=== PATIENT | male | born 1970 | race Caucasian/White ===

== ENCOUNTER 2017-01-07 18:06 | Inpatient (IN) | payer MEDICAID ==
[~2017-01-07] VITALS: Ht 172.7 cm; Wt 83.1 kg
[~2017-01-07 18:06] MED LIST: PALI6 PO; QUET100T PO; QUET200T PO; QUET25TA PO
[2017-01-07 18:58] LABS: BASOPHILS % (AUTO) 0.5 % (0.0-2.0); EOSINOPHILS % (AUTO) 2.2 % (1.0-6.0); HEMATOCRIT 41.5 % (41-53); HEMOGLOBIN 14.3 g/dL (13.5-17.5); LYMPHOCYTES # (AUTO) 2.1 K/uL (1.0-4.8); MEAN CORPUSCULAR HEMOGLOBIN 31.7 pg (26.0-34.0); MEAN CORPUSCULAR HGB CONC 34.4 G/dL (31.0-37.0); MEAN CORPUSCULAR VOLUME 92 fL (80-100); MONOCYTES # (AUTO) 0.9 K/uL (0.1-1.0); MONOCYTES % (AUTO) 10.9 % (2.0-9.0); NEUTROPHILS # (AUTO) 4.9 K/uL (1.8-7.7); NEUTROPHILS % (AUTO) 60.4 % (40.0-70.0); PLATELET COUNT (AUTO) 248 K/uL (150-450); RED CELL DISTRIBUTION WIDTH 13.6 % (11.5-14.5); WHITE BLOOD COUNT (AUTO) 8.1 K/uL (4.5-11.0)
[2017-01-07 19:16] LABS: ANION GAP 7 mmol/L (8-16); CALCIUM, TOTAL 9.1 mg/dL (8.8-10.5); CARBON DIOXIDE 26 mmol/L (22-29); CHLORIDE 104 mmol/L (98-107); GLOMERULAR FILTR. RATE CALC > 60 mL/min (>60); POTASSIUM 3.2 mmol/L (3.5-5.1); SODIUM SERUM 137 mmol/L (136-145); UREA NITROGEN, BLOOD 14 mg/dL (7-18)
[2017-01-07 19:22] LABS: ALANINE AMINOTRANSFERASE 22 U/L (12-78); ALBUMIN 3.5 g/dL (3.4-5.0); ASPARTATE AMINOTRANSFERASE 13 U/L (15-37); BILIRUBIN,TOTAL 0.2 mg/dL (0.1-1.0); TOTAL PROTEIN, SERUM 7.1 g/dL (6.4-8.2)
[2017-01-07] MEDS ORDERED: ZOLPIDEM TARTRATE 10 MG TABLET PO PRN (21:45)
[2017-01-07] MEDS: LORazepam 2 MG TABLET PO PRN (22:35)
[2017-01-07] MEDS: HALOPERIDOL 5 MG TABLET PO PRN (22:35)
[2017-01-08 03:04] VITALS: BP 116/89
[2017-01-08] MEDS ORDERED: INFLUENZA VIRUS VACCINE QVS 2017-18 (3YR+)/PF 60 MCG/0.5 ML SYRINGE IM ONE (05:30)
[2017-01-08] MEDS ORDERED: POTASSIUM CHLORIDE 20 MEQ ER TABLET PO ONE (06:30)
[2017-01-08 08:58] VITALS: BP 104/63
[2017-01-08 16:03] VITALS: BP 112/69
[2017-01-08] MEDS: RisperiDONE 1 MG TABLET PO SCH (16:10)
[2017-01-09 01:36] VITALS: BP 103/66
[2017-01-09 08:22] LABS: ALANINE AMINOTRANSFERASE 22 U/L (12-78); ALBUMIN 3.4 g/dL (3.4-5.0); ANION GAP 8 mmol/L (8-16); ASPARTATE AMINOTRANSFERASE 12 U/L (15-37); BILIRUBIN,TOTAL 0.3 mg/dL (0.1-1.0); CALCIUM, TOTAL 8.6 mg/dL (8.8-10.5); CARBON DIOXIDE 26 mmol/L (22-29); CHLORIDE 106 mmol/L (98-107); CHOL/HDL RATIO 2.8 (4.2-7.3); CREATININE 0.84 mg/dL (0.60-1.30); GLOMERULAR FILTR. RATE CALC > 60 mL/min (>60); POTASSIUM 4.4 mmol/L (3.5-5.1); SODIUM SERUM 140 mmol/L (136-145); THYROID STIMULATING HORMONE 2.46 uIU/mL (0.36-3.74); TOTAL PROTEIN, SERUM 6.3 g/dL (6.4-8.2); UREA NITROGEN, BLOOD 13 mg/dL (7-18)
[2017-01-09 08:58] VITALS: BP 109/60
[2017-01-09] MEDS: RisperiDONE 1 MG TABLET PO SCH ×2 (09:00→16:00)
[2017-01-09] MEDS: HALOPERIDOL 5 MG TABLET PO PRN (16:00)
[2017-01-09] MEDS: LORazepam 2 MG TABLET PO PRN (16:00)
[2017-01-09 16:01] VITALS: BP 128/67
[2017-01-10 00:01] VITALS: BP 112/60
[2017-01-10 08:41] VITALS: BP 123/73
[2017-01-10] MEDS: RisperiDONE 1 MG TABLET PO SCH ×2 (08:49→16:39)
[2017-01-10 16:06] VITALS: BP 129/77
[2017-01-11 00:30] VITALS: BP 102/60
[2017-01-11 08:03] VITALS: BP 112/64
[2017-01-11] MEDS: RisperiDONE 1 MG TABLET PO SCH (08:42)
[2017-01-11 16:06] VITALS: BP 114/72
[2017-01-11] MEDS: RisperiDONE 2 MG TABLET PO SCH (16:18)
[2017-01-12 05:13] VITALS: BP 101/62
[2017-01-12 08:26] VITALS: BP 123/71
[2017-01-12] MEDS: RisperiDONE 2 MG TABLET PO SCH ×2 (08:42→15:50)
[2017-01-12 16:23] VITALS: BP 128/70
[2017-01-13 00:02] VITALS: BP 115/64
[2017-01-13] MEDS: RisperiDONE 2 MG TABLET PO SCH (08:16)
[2017-01-13 08:23] VITALS: BP 106/58
[2017-01-13] MEDS ORDERED: RISP2TAB76 PO (10:27)
== END 2017-01-13 13:25 | disposition home or self-care (01) | DRG 750 ==
LOC: EMS 18:06 → B2S 23:13
PROVIDERS: ADMIT Psychiatry & Neurology Psychiatry; ATTEND Psychiatry & Neurology Psychiatry
DX: F20.0 Paranoid schizophrenia (principal); R45.851 Suicidal ideations; R45.850 Homicidal ideations; E87.6 Hypokalemia; F31.9 Bipolar disorder, unspecified; R73.9 Hyperglycemia, unspecified; Z28.21 Immunization not carried out because of patient refusal
CPT/HCPCS: 83036; 84439; 84443; 90471; 99285; G0480

== ENCOUNTER 2017-09-12 14:27 | Emergency (ER) | payer MEDICAID ==
[~2017-09-12] VITALS: Ht 172.7 cm; Wt 81.8 kg
[~2017-09-12 14:27] MED LIST changes: -PALI6 PO; -QUET100T PO; -QUET200T PO; -QUET25TA PO; +RISP2TAB76 PO
[2017-09-12] MEDS ORDERED: QUET25TA PO (14:47)
[2017-09-12 14:48] LABS: GLUCOSE,POINT OF CARE 153 MG/DL (70-110)
[2017-09-12 15:29] LABS: AMPHET/METH SCREEN,URINE NEGATIVE (NEGATIVE); BARBITURATE SCREEN, URINE NEGATIVE (NEGATIVE); BENZODIAZEPINES SCREEN,URINE NEGATIVE (NEGATIVE); CANNABINOID SCREEN,URINE NEGATIVE (NEGATIVE); COCAINE SCREEN,URINE NEGATIVE (NEGATIVE); METHADONE SCREEN, URINE NEGATIVE (NEGATIVE); OPIATE SCREEN,URINE NEGATIVE (NEGATIVE)
[2017-09-12 15:30] LABS: BASOPHILS % (AUTO) 0.8 % (0.0-2.0); EOSINOPHILS % (AUTO) 1.3 % (1.0-6.0); HEMATOCRIT 41.2 % (41-53); HEMOGLOBIN 14.7 g/dL (13.5-17.5); LYMPHOCYTES # (AUTO) 1.6 K/uL (1.0-4.8); LYMPHOCYTES % (AUTO) 20.8 % (22.0-44.0); MEAN CORPUSCULAR HEMOGLOBIN 31.5 pg (26.0-34.0); MEAN CORPUSCULAR HGB CONC 35.7 G/dL (31.0-37.0); MEAN CORPUSCULAR VOLUME 88 fL (80-100); MONOCYTES # (AUTO) 0.9 K/uL (0.1-1.0); MONOCYTES % (AUTO) 11.6 % (2.0-9.0); NEUTROPHILS % (AUTO) 65.5 % (40.0-70.0); PLATELET COUNT (AUTO) 269 K/uL (150-450); RED BLOOD CELL COUNT(AUTO) 4.67 MIL/uL (4.50-5.90); RED CELL DISTRIBUTION WIDTH 13.6 % (11.5-14.5)
[2017-09-12 15:30] LABS: PHENCYCLIDINE SCREEN,URINE NEGATIVE (NEGATIVE)
[2017-09-12 15:38] LABS: ANION GAP 9 mmol/L (8-16); CALCIUM, TOTAL 8.8 mg/dL (8.8-10.5); CARBON DIOXIDE 25 mmol/L (22-29); CHLORIDE 104 mmol/L (98-107); GLOMERULAR FILTR. RATE CALC > 60 mL/min (>60); GLUCOSE,RANDOM 114 mg/dL (70-110); POTASSIUM 3.4 mmol/L (3.5-5.1); SODIUM SERUM 138 mmol/L (136-145); UREA NITROGEN, BLOOD 8 mg/dL (7-18)
[2017-09-12 15:43] LABS: ALANINE AMINOTRANSFERASE 76 U/L (12-78); ALBUMIN 3.7 g/dL (3.4-5.0); ALKALINE PHOSPHATASE 82 U/L (46-116); ASPARTATE AMINOTRANSFERASE 18 U/L (15-37); BILIRUBIN,TOTAL 0.4 mg/dL (0.1-1.0); TOTAL PROTEIN, SERUM 7.5 g/dL (6.4-8.2)
[2017-09-12] MEDS ORDERED: HALOPERIDOL 5 MG TABLET PO ONE (15:45)
[2017-09-12] MEDS ORDERED: POTASSIUM CHLORIDE 20 MEQ ER TABLET PO ONE (17:00)
[2017-09-12 17:17] VITALS: BP 132/80
== END 2017-09-12 18:44 | disposition home or self-care (01) ==
LOC: EMS 14:28
DX: F20.9 Schizophrenia, unspecified (principal); F31.9 Bipolar disorder, unspecified
CPT/HCPCS: 36415; 80053; 80307; 82962; 85025; 99284; G0480

== ENCOUNTER 2018-05-04 14:17 | Inpatient (IN) | payer MEDICAID, OTHER ==
[~2018-05-04] VITALS: Ht 172.7 cm; Wt 81.2 kg
[~2018-05-04 14:17] MED LIST changes: +QUET25TA PO; -RISP2TAB76 PO
[2018-05-04] MEDS ORDERED: HALOPERIDOL 5 MG TABLET PO ONE (17:30)
[2018-05-04] MEDS ORDERED: LORazepam 2 MG TABLET PO ONE (17:30)
[2018-05-04] MEDS: LORazepam 2 MG TABLET PO PRN (20:51)
[2018-05-04] MEDS: HALOPERIDOL 5 MG TABLET PO PRN (20:51)
[2018-05-05 05:13] VITALS: BP 123/71
[2018-05-05 08:53] VITALS: BP 109/71
[2018-05-05] MEDS: QUEtiapine FUMARATE 100 MG TABLET PO SCH (09:59)
[2018-05-05] MEDS ORDERED: LOPERAMIDE HCL 2 MG CAPSULE PO PRN (10:30)
[2018-05-05] MEDS ORDERED: IBUPROFEN 600 MG TABLET PO PRN (10:30)
[2018-05-05] MEDS ORDERED: ONDANSETRON HCL 4 MG TABLET PO PRN (10:30)
[2018-05-05] MEDS ORDERED: BENZOCAINE/MENTHOL LOZENGE MM PRN (10:30)
[2018-05-05] MEDS ORDERED: BACITRACIN 28.4 GM OINTMENT TP PRN (10:30)
[2018-05-05] MEDS ORDERED: ALBUTEROL SULFATE HFA 90 MCG/PUFF 8 GM INHALER IH PRN (10:30)
[2018-05-05] MEDS ORDERED: MAG HYDROX/AL HYDROX/SIMETH ES 30 ML SUSPENSION UDCUP PO PRN (10:30)
[2018-05-05] MEDS ORDERED: ACETAMINOPHEN 325 MG TABLET PO PRN (10:30)
[2018-05-05] MEDS ORDERED: CloNIDine HCL 0.1 MG TABLET PO PRN (10:30)
[2018-05-05] MEDS ORDERED: MAGNESIUM HYDROXIDE SUSPENSION 30 ML UDCUP PO PRN (10:30)
[2018-05-05] MEDS ORDERED: PETROLATUM,WHITE 71 GM JELLY TP PRN (10:30)
[2018-05-05 16:14] VITALS: BP 107/67
[2018-05-05] MEDS: HALOPERIDOL 5 MG TABLET PO PRN (16:23)
[2018-05-05] MEDS: LORazepam 2 MG TABLET PO PRN (16:23)
[2018-05-05] MEDS: QUEtiapine FUMARATE 200 MG TABLET PO SCH (20:34)
[2018-05-05] MEDS: ZOLPIDEM TARTRATE 10 MG TABLET PO PRN (20:34)
[2018-05-06 02:24] VITALS: BP 108/65
[2018-05-06 08:29] LABS: HEMATOCRIT 38.3 % (41-53); HEMOGLOBIN 13.9 g/dL (13.5-17.5); MEAN CORPUSCULAR HEMOGLOBIN 32.6 pg (26.0-34.0); MEAN CORPUSCULAR HGB CONC 36.3 G/dL (31.0-37.0); MEAN CORPUSCULAR VOLUME 90 fL (80-100); PLATELET COUNT (AUTO) 215 K/uL (150-450); RED BLOOD CELL COUNT(AUTO) 4.27 MIL/uL (4.50-5.90); RED CELL DISTRIBUTION WIDTH 13.3 % (11.5-14.5)
[2018-05-06 08:44] VITALS: BP 104/63
[2018-05-06 08:58] LABS: ANION GAP 5 mmol/L (8-16); CALCIUM, TOTAL 8.9 mg/dL (8.8-10.5); CARBON DIOXIDE 28 mmol/L (22-29); CHLORIDE 108 mmol/L (98-107); CHOL/HDL RATIO 3.1 (4.2-7.3); CHOLESTEROL 180 mg/dL (131-200); CREATININE 0.89 mg/dL (0.60-1.30); GLOMERULAR FILTR. RATE CALC > 60 mL/min (>60); GLUCOSE,RANDOM 78 mg/dL (70-110); HDL CHOLESTEROL 58 mg/dL (40-60); LDL CHOL (CALC.) 102 mg/dL (0-130); PHOSPHORUS 3.7 mg/dL (2.5-4.9); SODIUM SERUM 141 mmol/L (136-145); THYROID STIMULATING HORMONE 1.34 uIU/mL (0.36-3.74); TRIGLYCERIDES 102 mg/dL (15-150); UREA NITROGEN, BLOOD 13 mg/dL (7-18)
[2018-05-06] MEDS: OMEPRAZOLE 20 MG CAPSULE PO SCH (09:11)
[2018-05-06] MEDS: DOCUSATE SODIUM 100 MG CAPSULE PO SCH (09:11)
[2018-05-06] MEDS: LORazepam 2 MG TABLET PO PRN ×2 (09:11→18:02)
[2018-05-06] MEDS: QUEtiapine FUMARATE 100 MG TABLET PO SCH (09:11)
[2018-05-06 09:46] LABS: BAND NEUTROPHILS % (MANUAL) 5 % (0-5); EOSINOPHILS % (MANUAL) 3 % (1-6); LYMPHOCYTES % (MANUAL) 30 % (22-44); MONOCYTES % (MANUAL) 5 % (2-9); SEGMENTED NEUTROPHILS % 57 % (40-70)
[2018-05-06 16:00] VITALS: BP 119/78
[2018-05-06] MEDS: QUEtiapine FUMARATE 200 MG TABLET PO SCH (20:30)
[2018-05-07 05:29] VITALS: BP 114/65
[2018-05-07 08:55] VITALS: BP 113/74
[2018-05-07] MEDS: QUEtiapine FUMARATE 100 MG TABLET PO SCH (08:59)
[2018-05-07] MEDS: OMEPRAZOLE 20 MG CAPSULE PO SCH (08:59)
[2018-05-07] MEDS: DOCUSATE SODIUM 100 MG CAPSULE PO SCH (08:59)
[2018-05-07 16:11] VITALS: BP 118/77
[2018-05-07] MEDS: QUEtiapine FUMARATE 200 MG TABLET PO SCH (20:27)
[2018-05-08 01:42] VITALS: BP 122/72
[2018-05-08 08:20] VITALS: BP 132/77
[2018-05-08] MEDS: DOCUSATE SODIUM 100 MG CAPSULE PO SCH (08:27)
[2018-05-08] MEDS: OMEPRAZOLE 20 MG CAPSULE PO SCH (08:27)
[2018-05-08] MEDS: QUEtiapine FUMARATE 100 MG TABLET PO SCH (08:27)
[2018-05-08 16:32] VITALS: BP 114/76
[2018-05-08] MEDS: LORazepam 2 MG TABLET PO PRN (16:40)
[2018-05-08] MEDS: QUEtiapine FUMARATE 200 MG TABLET PO SCH (20:38)
[2018-05-09 01:37] VITALS: BP 116/74
[2018-05-09 08:24] VITALS: BP 133/67
[2018-05-09] MEDS: LORazepam 2 MG TABLET PO PRN ×2 (08:40→16:14)
[2018-05-09] MEDS: OMEPRAZOLE 20 MG CAPSULE PO SCH (08:40)
[2018-05-09] MEDS: DOCUSATE SODIUM 100 MG CAPSULE PO SCH (08:40)
[2018-05-09] MEDS: QUEtiapine FUMARATE 100 MG TABLET PO SCH (08:40)
[2018-05-09 16:00] VITALS: BP 133/85
[2018-05-09] MEDS: QUEtiapine FUMARATE 200 MG TABLET PO SCH (21:06)
[2018-05-09] MEDS: ZOLPIDEM TARTRATE 10 MG TABLET PO PRN (21:06)
[2018-05-10 06:39] VITALS: BP 119/64
[2018-05-10 08:12] VITALS: BP 101/60
[2018-05-10] MEDS: DOCUSATE SODIUM 100 MG CAPSULE PO SCH (08:44)
[2018-05-10] MEDS: QUEtiapine FUMARATE 100 MG TABLET PO SCH (08:44)
[2018-05-10] MEDS: OMEPRAZOLE 20 MG CAPSULE PO SCH (08:44)
[2018-05-10 16:31] VITALS: BP 117/69
[2018-05-10] MEDS: LORazepam 2 MG TABLET PO PRN (16:31)
[2018-05-10] MEDS: HALOPERIDOL 5 MG TABLET PO PRN (16:31)
[2018-05-10] MEDS: ZOLPIDEM TARTRATE 10 MG TABLET PO PRN (20:24)
[2018-05-10] MEDS: QUEtiapine FUMARATE 200 MG TABLET PO SCH (20:24)
[2018-05-11 02:58] VITALS: BP 104/60
[2018-05-11] MEDS: DOCUSATE SODIUM 100 MG CAPSULE PO SCH (08:22)
[2018-05-11] MEDS: LORazepam 2 MG TABLET PO PRN ×2 (08:22→16:22)
[2018-05-11] MEDS: OMEPRAZOLE 20 MG CAPSULE PO SCH (08:22)
[2018-05-11] MEDS: QUEtiapine FUMARATE 100 MG TABLET PO SCH (08:22)
[2018-05-11 08:23] VITALS: BP 100/61
[2018-05-11 16:14] VITALS: BP 114/70
[2018-05-11] MEDS: QUEtiapine FUMARATE 200 MG TABLET PO SCH (20:32)
[2018-05-12 00:51] VITALS: BP 127/83
[2018-05-12 08:16] VITALS: BP 123/74
[2018-05-12] MEDS: OMEPRAZOLE 20 MG CAPSULE PO SCH (08:53)
[2018-05-12] MEDS: DOCUSATE SODIUM 100 MG CAPSULE PO SCH (08:53)
[2018-05-12] MEDS: QUEtiapine FUMARATE 100 MG TABLET PO SCH (08:53)
[2018-05-12 16:28] VITALS: BP 125/77
[2018-05-12] MEDS: LORazepam 2 MG TABLET PO PRN (16:30)
[2018-05-12] MEDS: QUEtiapine FUMARATE 200 MG TABLET PO SCH (20:39)
[2018-05-13] MEDS ORDERED: QUET200T PO (00:45)
[2018-05-13 06:01] VITALS: BP 106/60
[2018-05-13 08:00] VITALS: BP 122/80
[2018-05-13] MEDS: OMEPRAZOLE 20 MG CAPSULE PO SCH (08:26)
[2018-05-13] MEDS: QUEtiapine FUMARATE 100 MG TABLET PO SCH (08:26)
[2018-05-13] MEDS: DOCUSATE SODIUM 100 MG CAPSULE PO SCH (08:26)
[2018-05-13] MEDS: LORazepam 2 MG TABLET PO PRN (08:27)
== END 2018-05-13 13:30 | disposition home or self-care (01) | DRG 750 ==
LOC: EMS 14:19 → B3A 18:28
PROVIDERS: ADMIT Psychiatry & Neurology Psychiatry; ATTEND Psychiatry & Neurology Psychiatry
DX: F20.0 Paranoid schizophrenia (principal); R45.851 Suicidal ideations; Z59.0 Homelessness; F31.9 Bipolar disorder, unspecified; G47.00 Insomnia, unspecified; K59.00 Constipation, unspecified; Z91.14 Patient's other noncompliance with medication regimen; Z28.21 Immunization not carried out because of patient refusal
CPT/HCPCS: 83735; 84100; 84443; 85007; 90686

== ENCOUNTER 2018-12-23 16:38 | Emergency (ER) | payer MEDICAID, OTHER ==
[~2018-12-23] VITALS: Ht 172.7 cm; Wt 81.8 kg
[~2018-12-23 16:38] MED LIST changes: +QUET200T PO
[2018-12-23 18:38] LABS: BASOPHILS % (AUTO) 0.7 % (0.0-2.0); LYMPHOCYTES # (AUTO) 1.8 K/uL (1.0-4.8); LYMPHOCYTES % (AUTO) 27.9 % (22.0-44.0); MEAN CORPUSCULAR HEMOGLOBIN 31.2 pg (26.0-34.0); MEAN CORPUSCULAR VOLUME 92 fL (80-100); MONOCYTES # (AUTO) 0.7 K/uL (0.1-1.0); MONOCYTES % (AUTO) 10.3 % (2.0-9.0); NEUTROPHILS # (AUTO) 3.8 K/uL (1.8-7.7); NEUTROPHILS % (AUTO) 59.1 % (40.0-70.0); PLATELET COUNT (AUTO) 242 K/uL (150-450); RED BLOOD CELL COUNT(AUTO) 4.79 MIL/uL (4.50-5.90); RED CELL DISTRIBUTION WIDTH 13.3 % (11.5-14.5)
[2018-12-23 19:12] LABS: ALANINE AMINOTRANSFERASE 13 U/L (12-78); ALBUMIN 3.3 g/dL (3.4-5.0); ALKALINE PHOSPHATASE 63 U/L (46-116); ANION GAP 8 mmol/L (8-16); ASPARTATE AMINOTRANSFERASE 11 U/L (15-37); BILIRUBIN,TOTAL 0.6 mg/dL (0.1-1.0); CALCIUM, TOTAL 9.6 mg/dL (8.8-10.5); CARBON DIOXIDE 26 mmol/L (22-29); CHLORIDE 108 mmol/L (98-107); CREATININE 1.03 mg/dL (0.60-1.30); GLOMERULAR FILTR. RATE CALC > 60 mL/min (>60); GLUCOSE,RANDOM 88 mg/dL (70-110); POTASSIUM 3.6 mmol/L (3.5-5.1); SODIUM SERUM 142 mmol/L (136-145); TOTAL PROTEIN, SERUM 7.1 g/dL (6.4-8.2); UREA NITROGEN, BLOOD 10 mg/dL (7-18)
[2018-12-23 19:51] LABS: AMPHET/METH SCREEN,URINE NEGATIVE (NEGATIVE); BARBITURATE SCREEN, URINE NEGATIVE (NEGATIVE); BENZODIAZEPINES SCREEN,URINE NEGATIVE (NEGATIVE); CANNABINOID SCREEN,URINE NEGATIVE (NEGATIVE); COCAINE SCREEN,URINE NEGATIVE (NEGATIVE); METHADONE SCREEN, URINE NEGATIVE (NEGATIVE); OPIATE SCREEN,URINE NEGATIVE (NEGATIVE); PHENCYCLIDINE SCREEN,URINE NEGATIVE (NEGATIVE)
[2018-12-23] MEDS ORDERED: QUEtiapine FUMARATE 100 MG TABLET PO ONE (22:30)
[2018-12-23 22:52] VITALS: BP 117/68
== END 2018-12-23 23:00 | disposition home or self-care (01) ==
LOC: EMS 16:38
DX: F31.9 Bipolar disorder, unspecified (principal); F20.9 Schizophrenia, unspecified; F17.210 Nicotine dependence, cigarettes, uncomplicated; Z79.899 Other long term (current) drug therapy; Z98.890 Other specified postprocedural states
CPT/HCPCS: 36415; 80053; 80307; 85025; 99284; G0480

== ENCOUNTER 2019-05-27 02:48 | Emergency (ER) | payer MEDICAID ==
[~2019-05-27] VITALS: Ht 172.7 cm; Wt 72.7 kg
[2019-05-27 08:08] LABS: BASOPHILS % (AUTO) 0.7 % (0.0-2.0); EOSINOPHILS % (AUTO) 6.2 % (1.0-6.0); HEMATOCRIT 41.7 % (41-53); LYMPHOCYTES # (AUTO) 1.3 K/uL (1.0-4.8); LYMPHOCYTES % (AUTO) 24.9 % (22.0-44.0); MEAN CORPUSCULAR HEMOGLOBIN 30.8 pg (26.0-34.0); MEAN CORPUSCULAR HGB CONC 33.5 G/dL (31.0-37.0); MEAN CORPUSCULAR VOLUME 92 fL (80-100); MONOCYTES # (AUTO) 0.6 K/uL (0.1-1.0); MONOCYTES % (AUTO) 11.9 % (2.0-9.0); NEUTROPHILS # (AUTO) 2.9 K/uL (1.8-7.7); NEUTROPHILS % (AUTO) 56.3 % (40.0-70.0); PLATELET COUNT (AUTO) 255 K/uL (150-450); RED BLOOD CELL COUNT(AUTO) 4.54 MIL/uL (4.50-5.90); RED CELL DISTRIBUTION WIDTH 14.2 % (11.5-14.5)
[2019-05-27 08:31] LABS: ANION GAP 7 mmol/L (8-16); CALCIUM, TOTAL 9.1 mg/dL (8.8-10.5); CARBON DIOXIDE 29 mmol/L (22-29); CHLORIDE 110 mmol/L (98-107); CREATININE 0.83 mg/dL (0.60-1.30); GLOMERULAR FILTR. RATE CALC > 60 mL/min (>60); GLUCOSE,RANDOM 87 mg/dL (70-110); POTASSIUM 4.3 mmol/L (3.5-5.1); SODIUM SERUM 146 mmol/L (136-145); UREA NITROGEN, BLOOD 15 mg/dL (7-18)
[2019-05-27 08:37] LABS: ALANINE AMINOTRANSFERASE 25 U/L (12-78); ALBUMIN 3.3 g/dL (3.4-5.0); ALKALINE PHOSPHATASE 92 U/L (46-116); ASPARTATE AMINOTRANSFERASE 16 U/L (15-37); BILIRUBIN,TOTAL 0.3 mg/dL (0.1-1.0); TOTAL PROTEIN, SERUM 6.5 g/dL (6.4-8.2)
[2019-05-27 10:06] VITALS: BP 98/57
[2019-05-27] MEDS ORDERED: QUET100T PO (16:02)
== END 2019-05-27 10:16 | disposition home or self-care (01) ==
LOC: EMS 02:51
DX: R07.2 Precordial pain (principal); F31.9 Bipolar disorder, unspecified; F20.9 Schizophrenia, unspecified; F17.210 Nicotine dependence, cigarettes, uncomplicated; Z98.890 Other specified postprocedural states; Z79.899 Other long term (current) drug therapy
CPT/HCPCS: 93005

== ENCOUNTER 2019-05-27 11:39 | Emergency (ER) | payer MEDICAID ==
[~2019-05-27] VITALS: Ht 172.7 cm; Wt 72.7 kg
[2019-05-27 11:50] VITALS: BP 100/57
[2019-05-27] MEDS ORDERED: QUET100T PO (16:02)
== END 2019-05-27 13:25 | disposition left against medical advice (07) ==
LOC: EMS 11:41
DX: M79.605 Pain in left leg (principal); M79.604 Pain in right leg; Z53.21 Procedure and treatment not carried out due to patient leaving prior to being seen by health care provider

== ENCOUNTER 2019-05-27 14:32 | Emergency (ER) | payer MEDICAID ==
[~2019-05-27] VITALS: Ht 172.7 cm; Wt 31.0 kg
[2019-05-27] MEDS ORDERED: ACETAMINOPHEN 325 MG TABLET PO ONE (16:00)
[2019-05-27] MEDS ORDERED: QUET100T PO (16:02)
[2019-05-27 17:27] VITALS: BP 113/64
== END 2019-05-27 18:43 | disposition home or self-care (01) ==
LOC: EMS 14:34
DX: M25.562 Pain in left knee (principal); M25.561 Pain in right knee; F31.9 Bipolar disorder, unspecified; F20.9 Schizophrenia, unspecified; F17.210 Nicotine dependence, cigarettes, uncomplicated; Z79.899 Other long term (current) drug therapy

== ENCOUNTER 2019-06-12 21:04 | Emergency (ER) | payer MEDICAID ==
[~2019-06-12] VITALS: Ht 177.8 cm; Wt 81.8 kg
[~2019-06-12 21:04] MED LIST changes: +QUET100T PO; -QUET25TA PO
[2019-06-12 22:18] VITALS: BP 124/76
[2019-06-12] MEDS ORDERED: KETOROLAC TROMETHAMINE 60 MG/2 ML VIAL IM ONE (22:45)
== END 2019-06-12 23:19 | disposition left against medical advice (07) ==
LOC: EMS 21:06
DX: R07.2 Precordial pain (principal); R05 Cough; F17.210 Nicotine dependence, cigarettes, uncomplicated
CPT/HCPCS: 93005

== ENCOUNTER 2019-07-04 15:55 | Emergency (ER) | payer MEDICAID ==
[~2019-07-04] VITALS: Ht 170.2 cm; Wt 63.6 kg
[2019-07-04] MEDS ORDERED: IBUPROFEN 600 MG TABLET PO ONE (16:45)
[2019-07-04] MEDS ORDERED: LIDOCAINE 5% TRANSDERMAL PATCH TD ONE (16:45)
[2019-07-04 17:04] VITALS: BP 120/70
== END 2019-07-04 17:29 | disposition home or self-care (01) ==
LOC: EMS 15:55
DX: M54.5 Low back pain (principal); F17.210 Nicotine dependence, cigarettes, uncomplicated; F20.9 Schizophrenia, unspecified

== ENCOUNTER 2019-07-31 16:42 | Emergency (ER) | payer MEDICAID ==
[~2019-07-31] VITALS: Ht 177.8 cm; Wt 81.8 kg
[2019-07-31 16:47] VITALS: BP 113/73
== END 2019-07-31 18:03 | disposition left against medical advice (07) ==
LOC: EMS 16:42
DX: R07.9 Chest pain, unspecified (principal); Z53.21 Procedure and treatment not carried out due to patient leaving prior to being seen by health care provider
CPT/HCPCS: 93005